=== PATIENT | male | born 1950 | race Caucasian/White ===

== ENCOUNTER 2018-10-05 02:27 | Inpatient (IN) | payer MEDICARE, SELFPAY ==
[2018-10-05] VITALS (18 sets, daily range): BP systolic 121–198; BP diastolic 56–109; PULSE 64–103; RESP 14–22; TEMP 36.7–37.6; O2SAT 92–99; BMI 31.0; BMI 30.2
--- NOTE | 2018-10-05 02:43 | CT_ITS ---
HISTORY: MID ABDOMEN PAIN SINCE YESTERDAY,NAUSEA,ELEVATED WBC,RECENT TRAVEL OUT OF THE HX:HLD,HTN,DIABETES EXAMINATION: CT Abdomen And Pelvis W/ Contrast TECHNIQUE: Helically acquired images were obtained of the abdomen and pelvis following IV contrast. A radiation dose optimization technique was used for this scan. IV Contrast dosage and agent: 100ML Isovue 300 Oral contrast: yes COMPARISON: None FINDINGS: Lower thorax: Right basilar mild dependent atelectasis, not unusual. No pleural effusion. Borderline cardiomegaly. No pericardial effusion. The gallbladder is well distended and shows multiple small dependent stones. No biliary dilatation. Mild fatty infiltration of the liver. The liver is upper normal in size. Normal spleen and pancreas. Both kidneys are normal in position. Bilateral renal excretion of contrast without evidence of hydronephrosis or suspicious renal lesion. Benign-appearing cortical cysts of both kidneys. Adrenal glands are not enlarged. Abdominal aorta is atherosclerotic and normal in caliber. No ascites or retroperitoneal lymph enlargement. GI tract: No obstruction. Large fecal residue within the right colon. Small appendiceal stump. No pericolonic inflammatory changes. Pelvis: No free fluid or lymph node enlargement. Normal urinary bladder. The prostate gland is not enlarged. Bones: No acute osseous abnormality. Ventral abdominal wall: Tiny fat-containing umbilical hernia. CT/Abdomen/Pelvis WITH Contrast IMPRESSION: 1. Cholelithiasis. No biliary dilatation. Fatty liver. 2. No bowel obstruction or acute abdominal disease identified. Individualized dose optimization techniques were used for this CT. at 0543 Reported and signed by: Sourav Salvador MD Electronically Signed: Sourav Salvador, at 5:42 EDT Tel , Service support ,
--- NOTE | 2018-10-05 02:43 | EKG12_ITS ---
Test Reason : Blood Pressure : / mmHG Vent. Rate : 063 BPM Atrial Rate : 058 BPM P-R Int : 148 ms QRS Dur : 094 ms QT Int : 436 ms P-R-T Axes : 039 -24 011 degrees QTc Int : 446 ms Sinus bradycardia with Premature atrial complexes Otherwise normal ECG Confirmed by SRAVANTHI LOGAN, AYDEE ([id number]), assignment editor RADHA PALACIOS ([id number]) on 10/10/2018 12:57:20 PM Referred By: Confirmed By:AYDEE FISHMAN MD
[2018-10-05] MEDS: Ondansetron 4 MG/2 ML Vial IV ×2 (02:50→09:21)
[2018-10-05] MEDS: Morphine 4 MG/ML Syringe IV ×3 (02:50→13:34)
[2018-10-05 02:54] LABS: Absolute Lymphocyte Count 0.82 X10^3/ul (0.83-4.51); Absolute Neutrophil Count 11.8 X10^3/uL (2.0-7.7); Basophil# 0.02 X10^3/uL; Basophil% 0.1 % (0-1); Eosinophil# 0.07 X10^3/uL; Eosinophils% 0.5 % (0-5); Hematocrit 45.7 % (40-54); Hemoglobin 15.9 g/dl (13.0-16.5); Lymphocyte # 0.82 X10^3/ul (4.0); Lymphocyte % 6.1 % (19-41); Mean Corp Hgb Conc 34.8 g/gl (32-36); Mean Corpuscular Hgb 30.3 pg (27.0-32.0); Mean Platelet Vol. 10.1 fl (6.2-12.0); Monocyte# 0.79 X10^3/uL; Monocyte% 5.8 % (0-10); Neutrophil % 87.2 % (47-70); POSITIVE COUNT NO; POSITIVE DIFFERENTIAL NO; POSITIVE MORPHOLOGY NO; Platelet Count 192 K/mm3 (150-450); RBC Distribution Width CV 13.1 % (11.6-14.6); RBC Distribution Width SD 41.3 fl (35.1-43.9); Red Blood Count 5.25 M/mm3 (4.6-6.2); White Blood Count 13.5 K/mm3 (4.4-11.0)
--- NOTE | 2018-10-05 03:16 | ED.DCSUM_ITS ---
- ER Visit Summary Date of Service: 10/05/18 Chief Complaint: Abdominal pain History of Present Illness: The patient is a 68 M presenting with abdominal pain. Patient states this started around 7 PM last night. He has mid and right upper quadrant abdominal pain. He has associated nausea and vomiting. He states he had loose stool but denies diarrhea or constipation. Denies urinary complaints. Denies fever. States he ate [place] food around 2 PM. He has never had similar symptoms in the past. Denies fever. Denies chest pain or shortness of breath. Denies other complaints. Physical Examination: Vitals are stable. Patient is afebrile. Alert no acute distress. HEENT exam is unremarkable. Neck is supple. Lungs are clear and equal bilaterally. Heart is regular rate and rhythm. Abdomen is soft right upper quadrant and epigastric tenderness. No rebound or guarding Extremities are unremarkable. Skin is warm and dry. Remainder of exam is unremarkable. Emergency Department Course and Treatment: Patient was given morphine, Zofran IV. EKG is sinus rate of 63 with no acute ischemic changes. CBC shows a white count of 13.5. Chemistries normal except for glucose 211, BUN 19, creatinine 1.33. Liver lipase are normal. CT abdomen pelvis with IV and oral contrast shows cholelithiasis. No biliary dilatation. Fatty liver. No bowel obstruction or acute abdominal disease identified. Patient continues to have pain and was [place] Dilaudid IV. Right upper quadrant ultrasound was ordered and will be checked by oncoming physician. Disposition: Pending Impression: Abdominal pain This note was generated with [employer] dictation software. It may contain incorrect words, spelling, and punctuation that were not noted in review of the chart prior to signing ED Disposition - Plan for ED Patient: Referrals: Torrey Chi MD [Primary Care Provider] -
[2018-10-05 03:19] LABS: AST(SGOT) 20 U/L (15-37); Alanine Aminotransfer ALT/SGPT 28 U/L (16-61); Alkaline Phosphatase 88 U/L (45-117); Anion Gap 9 (5-15); BUN 19 mg/dL (7-18); BUN/Creat Ratio 14.3 RATIO (10-20); Bilirubin, Direct 0.23 mg/dL (0.00-0.30); Calcium,Total 9.4 mg/dL (8.5-10.1); Chloride 103 mmol/L (98-107); Creatinine, Serum 1.33 mg/dL (0.70-1.30); EST Glomerular Filtration Rate 56 mL/min (>60); Est Glom Filt Rate - Afr Amer 68 mL/min (>60); Estimated Creatinine Clearance 53.36 ml/min; Globulin 4.1 g/dL (2.2-4.2); Glucose 211 mg/dL (74-106); Lipase 105 U/L (73-393); Potassium 4.1 mmol/L (3.5-5.1); Protein, Total 8.1 g/dL (6.4-8.2); Sodium Level 140 mmol/L (136-145)
[2018-10-05] MEDS: HYDROmorphone 1 MG/ML Syringe IV (06:06)
--- NOTE | 2018-10-05 06:38 | US_ITS ---
STUDY: ABDOMINAL ULTRASOUND - RIGHT UPPER QUADRANT REASON FOR VISIT: Male, 68 years old. 1 day history of epigastric pain. TECHNIQUE: Ultrasound evaluation of the right upper quadrant was performed with real-time and static carey-scale imaging. TECHNICAL QUALITY: Adequate. COMPARISON: Comparison is made with prior CT scan done and pelvis done earlier in today. FINDINGS: Liver: The liver measures 17.5 cm. There is increased echogenicity consistent with fatty infiltration. The bile ducts are within normal limits. There is hepatic color flow. The direction of portal flow is hepatopetal. There is no demonstrated mass lesion. Gallbladder: Normal distended gallbladder. The gallbladder wall is slightly thickened and measures 4.0 mm. There is a positive sonographic Meza's sign. There is small amount of pericholecystic fluid. There are multiple small echogenic structures within the gallbladder, consistent with multiple gallstones. Sludge is also seen in the gallbladder lumen. Common Bile Duct (C.B.D.): The common bile duct measures 4.9 mm. Pancreas: Normal size of the head, body and tail of the pancreas. There is normal echogenicity of the pancreas. There is no demonstrated pancreatic mass or cyst. Right Kidney: Normal size of the right kidney. The right kidney measures 9.9 cm x 4.5 cm x 5.5 cm. Normal renal cortex. The right cortex measures 1.3 cm. 2 cysts are seen. The larger measures 1.9 cm x 1.5 cm x 1.6 cm. There is no right hydronephrosis. US/Gallbladder IMPRESSION: Fatty infiltration of the liver. Gallstones and sludge in the gallbladder lumen. Thickened gallbladder wall with the small amount of pericholecystic fluid. Right renal cysts. Electronically Signed: Tommy Main, at 8:28 EDT , Service support ,
--- NOTE | 2018-10-05 08:57 | PCM.HP.BLA ---
History and Physical Date of Admission: 10/05/18 Chief Complaint: abdominal pain History of Present Illness: 68 y/o WM with hypertension and diabetes, presents with acute onset of right upper quadrant abdominal pain since last evening. Denies antecedent symptoms. Denies fevers. Has had nausea/emesis. Has anorexia. Has occasional constipation, denies diarrhea. Denies jaundice. Presented to ED [facility] - WBC 13.5 k with left shift of differential. Elevated creatinine at 1.33 PAST?MEDICAL?HISTORY ? B12 DEFIC ANEMIA NEC ? ? Diabetes (HCC) ? ? Eczema ? ? ears ? Hypertension ? ? Mixed hyperlipidemia ? ? OBESITY NOS ? ? Work-related stress ? ? ? PAST?SURGICAL?HISTORY ? COLONOSCOP W/ OR W/O [facility] SPEC ? 04/29/09 ? Repeat due 2019 ? KNEE ARTHROSCOPY/SURGERY ? ? ? right meniscus repair ? PAST SURGICAL HISTORY OF ? 07/28/11 ? throid FNA-benign ? TONSILLECTOMY HX ? ? ? Medications: losartan-hydrochlorothiazide (HYZAAR) 50-12.5 mg per tablet metFORMIN ER (GLUCOPHAGE XR) 500 mg 24 hr tablet atorvastatin (LIPITOR) 10 mg tablet triamcinolone acetonide (KENALOG) 0.1 % cream Cyanocobalamin (VITAMIN B-12) 1,000 mcg subl Allergies: Has no known drug allergies Social history: TOB use denies Review of Systems: General - denies fevers, Cardiovascular denies chest pain, denies history of heart attack, denies heart problems Pulmonary denies shortness of breath, denies coughing up blooda Gastrointestinal as per HPI, Neurological denies numbness/weakness of extremities, denies seizures, denies history of stroke Genitourinary denies burning with urination, denies blood in urine, Hematological denies spontaneous bleeding, denies prolonged bleeding Skin denies open wounds, denies rashes Musculoskeletal had ankle fracture in past Endocrine has diabetes Psychological denies suicidal ideation, denies hallucinations Physical examination: Vital signs Temp 98.2 BP 180/102 General WD/WN WM in no apparent distress, alert and oriented, not septic appearing HEENT Normocephalic. EOM intact with sclera clear and no icterus noted. Neck is supple with no jugular venous distention noted. Trachea is midline. Lungs clear to auscultation. normal breath sounds . No rales/rhonchi/wheezing noted. No labored breathing noted, such as retractions. No cough heard. Heart normal S1 and S2 auscultated. No rubs/clicks/murmurs noted. Normal size and location by auscultation. Abdomen soft but tender in right upper quadrant, decreased bowel sounds, difficult to determine if any masses due to body habitus. Extremities no calf tenderness noted. No pitting edema noted. Genitourinary/Rectal deferred Skin no rashes noted. Normal skin integrity. Neurological non focal Psychological normal affect, patient is calm and appropriate Impression: cholelithiasis, acute cholecystitis hypertension diabetes BMI >30 DIscussion/Plan: I have discussed the above with the patient and his who is present with him. I have offered the patient the procedure of laparoscopic cholecystectomy, possible cholangiograms. I have explained the procedure to the patient. I have counseled the patient as to the risks of the procedure, including but not limited to: infection, bleeding, injury to any blood vessels/nerves, scar tissue, injury to any intraabdominal organs, injury to kidney/ureters, injury to bowel/bladder, injury to the common bile duct/biliary tree, bile leakage, intraabdominal abscess/bleeding, hernias at incisional sites, wound infections, possible open procedure, complications of anesthesia, postoperative pneumonia/cardiac problems/blood clots etc. the patient understands. He agrees to proceed. I have answered all questions to the patient?s satisfaction and the patient has no further questions.
--- NOTE | 2018-10-05 09:06 | HP.PCM_ITS ---
History and Physical Date of Admission: 10/05/18 Chief Complaint: abdominal pain History of Present Illness: 68 y/o WM with hypertension and diabetes, presents with acute onset of right upper quadrant abdominal pain since last evening. Denies antecedent symptoms. Denies fevers. Has had nausea/emesis. Has anorexia. Has occasional constipation, denies diarrhea. Denies jaundice. Presented to ED [facility] - WBC 13.5 k with left shift of differential. Elevated creatinine at 1.33 PAST?MEDICAL?HISTORY ? B12 DEFIC ANEMIA NEC ? ? Diabetes (HCC) ? ? Eczema ? ? ears ? Hypertension ? ? Mixed hyperlipidemia ? ? OBESITY NOS ? ? Work-related stress ? ? ? PAST?SURGICAL?HISTORY ? COLONOSCOP W/ OR W/O [facility] SPEC ? 04/29/09 ? Repeat due 2019 ? KNEE ARTHROSCOPY/SURGERY ? ? ? right meniscus repair ? PAST SURGICAL HISTORY OF ? 07/28/11 ? throid FNA-benign ? TONSILLECTOMY HX ? ? ? Medications: losartan-hydrochlorothiazide (HYZAAR) 50-12.5 mg per tablet metFORMIN ER (GLUCOPHAGE XR) 500 mg 24 hr tablet atorvastatin (LIPITOR) 10 mg tablet triamcinolone acetonide (KENALOG) 0.1 % cream Cyanocobalamin (VITAMIN B-12) 1,000 mcg subl Allergies: Has no known drug allergies Social history: TOB use denies Review of Systems: General - denies fevers, Cardiovascular denies chest pain, denies history of heart attack, denies heart problems Pulmonary denies shortness of breath, denies coughing up blooda Gastrointestinal as per HPI, Neurological denies numbness/weakness of extremities, denies seizures, denies history of stroke Genitourinary denies burning with urination, denies blood in urine, Hematological denies spontaneous bleeding, denies prolonged bleeding Skin denies open wounds, denies rashes Musculoskeletal had ankle fracture in past Endocrine has diabetes Psychological denies suicidal ideation, denies hallucinations Physical examination: Vital signs Temp 98.2 BP 180/102 General WD/WN WM in no apparent distress, alert and oriented, not septic appearing HEENT Normocephalic. EOM intact with sclera clear and no icterus noted. Neck is supple with no jugular venous distention noted. Trachea is midline. Lungs clear to auscultation. normal breath sounds . No rales/rhonchi/wheezing noted. No labored breathing noted, such as retractions. No cough heard. Heart normal S1 and S2 auscultated. No rubs/clicks/murmurs noted. Normal size and location by auscultation. Abdomen soft but tender in right upper quadrant, decreased bowel sounds, difficult to determine if any masses due to body habitus. Extremities no calf tenderness noted. No pitting edema noted. Genitourinary/Rectal deferred Skin no rashes noted. Normal skin integrity. Neurological non focal Psychological normal affect, patient is calm and appropriate Impression: cholelithiasis, acute cholecystitis hypertension diabetes BMI >30 DIscussion/Plan: I have discussed the above with the patient and his who is present with him. I have offered the patient the procedure of laparoscopic cholecystectomy, possible cholangiograms. I have explained the procedure to the patient. I have counseled the patient as to the risks of the procedure, including but not limited to: infection, bleeding, injury to any blood vessels/nerves, scar tissue, injury to any intraabdominal organs, injury to kidney/ureters, injury to bowel/bladder, injury to the common bile duct/biliary tree, bile leakage, intraabdominal abscess/bleeding, hernias at incisional sites, wound infections, possible open procedure, complications of anesthesia, postoperative pneumonia/cardiac problems/blood clots etc. the patient understands. He agrees to proceed. I have answered all questions to the patient?s satisfaction and the patient has no further questions.
[2018-10-05] MEDS: HYDROmorphone 0.5 MG/0.5 ML SYRINGE IV (09:19)
[2018-10-05] MEDS: Lactated Ringers 1,000 ML 125 ML IV ×2 (11:13→19:08)
[2018-10-05] MEDS: Losartan Potassium 50 MG Tablet PO (11:13)
[2018-10-05] MEDS: hydroCHLOROthiazide 12.5mg 12.5 MG PO (11:13)
[2018-10-05 11:25] LABS: Bedside Glucose 234 mg/dL (70-110)
[2018-10-05] MEDS: Insulin Lispro 100 UNIT/ML INSULN.PEN SQ ×3 (11:27→22:13)
[2018-10-05 11:50] LABS: Hemoglobin A1c 8.1 % (4.2-6.3)
[2018-10-05] MEDS: 0.9% NaCl Peripheral Flush Adult/Peds IV (13:02)
[2018-10-05] MEDS: hydrALAZINE 20 MG/ML Vial 10 MG IV (13:02)
--- NOTE | 2018-10-05 15:30 | GALL_PTH ---
PATIENT: RANCHO MAY LOC: MS2 U#:[id number] AGE/SX: 68/M ROOM: MS211 RE10/05/[address]: Dr. Brittney Calderon MD : [id number] BED: 1 DIS: 10/06/2018 SPEC #: [id number] RECD: 10/06/18 09:50 STATUS: MICHAEL REQ #: [id number] SRINIVASAN: 10/05/18 15:[address]: Brittney Calderon DEPT: SURGICAL PATHOLOGY RECD BY: Garo Shearer ENTERED: 10/06/18 13:12 SP TYPE: JULI ORO DR: Dr. Torrey Chi MD Tissues: Gallbladder, NOS Procedures: Surgery Specimen Level III HEADER OPERATION: Laparoscopic cholecystectomy PRE-OP DIAGNOSIS: Cholelithiasis, acute cholecystitis TISSUE SUBMITTED: Gallbladder MICROSCOPIC DIAGNOSIS Gallbladder, cholecystectomy: Acute and chronic cholecystitis with denudation of mucosa. Cholelithiasis. AM:ania 10/07/18 MICROSCOPIC DESCRIPTION Slides are reviewed. GROSS DESCRIPTION Received is one container labeled with the patient's name and designated gallbladder. The specimen consists of a ruptured gallbladder measuring 9.6 x 3.5 x 2.8 cm. The serosal surface is covered by yellow fatty tissue. A roughened area is present, grossly compatible with the hepatic reflection. The gallbladder is opened to reveal multiple jagged black pigmented calculi ranging in diameter from 0.1 to 0.9 cm. The mucosal surface of the gallbladder is green and slightly velvety. Sections through the cystic duct demonstrate black granular material. The gallbladder wall is thickened but uniform (0.6 cm). V Belt Inspector sections of the gallbladder and the cystic duct are submitted in one cassette. / CE:ania 10/06/18 TC:2 CPT: 25386
[2018-10-05] MEDS: Bupiv/Epi 0.25% 30 ML Vial (16:25)
--- NOTE | 2018-10-05 16:30 | OP.PCM_ITS ---
Report of Operation Date of Procedure: 10/05/18 Pre-Operative Diagnosis: cholelithiasis, acute cholecystitis Post-Operative Diagnosis: cholelithiasis with obstruction, acute on chronic cholecystitis Surgery/Procedure Performed:: laparoscopic cholecystectomy Description of Surgical Findings:: acute on chronic cholecystitis, cholelithiasis with obstruction - distended gallbladder - needle aspiration revealed contents under pressure orthopedic shoe maker: Mj Estes Type of Anesthesia:: General Anesthesiologist: Prashant Cox Specimen's removed: gallbladder and contents Estimated Blood Loss (mL): 20 ml Fluids Replaced: 900 ml RL Description of Procedure: After informed consent was given, the patient was brought to the Operating Room. Appropriate time out protocol was followed. He was then placed in the supine position. The patient was then placed under general endotracheal anesthesia. The abdomen was then prepped with a sterile surgical skin preparation and sterile surgical drapes were placed. A skin fold was grasped with penetrating clamps and the skin and subcutaneous tissues were infiltrated with 0.25% marcaine with epinephrine. A skin incision was then made with a 15 blade scalpel. The anterior abdominal wall was elevated and a Veress needle was ca refully inserted into the intraabdominal cavity. It was checked to be in the proper position with a normal saline drop test. A CO2 pneumoperitoneum was then created. Once this was achieved, then the Veress needle was removed and an 11mm trocar was placed in its stead. A 10mm laparoscope was then inserted into the trocar and careful attention was directed to the intraabdominal contents. There was no evidence of injury to any intraabdominal organs from insertion of the Veress needle or the trocar. Under direct visualization, a 5mm subxiphoid trocar and two lateral 5mm right subcostal trocars were placed. The skin and subcutaneous tissues at these sites were infiltrated with 0.25% marcaine with epinephrine prior to placement of these trocars. Attention was then directed to the right upper quadrant of the abdomen. The gallbladder was distended, needle aspirator was used to aspirate out liquid contents, it was noted to be under pressure. Thus the distended gallbladder, once aspiration was done, could be grasped with graspers. Graspers were placed in the lateral trocars to grasp the distal aspect of the gallbladder and direct it cephalad and to grasp the gallbladder at Rose?s pouch and direct it laterally. The gallbladder was friable. There was a large amount inflammation c/w acute on chronic cholecystitis. Dissection then began on the proximal gallbladder continuing down to the area of the triangle of Calot to bluntly dissect out the cystic duct. The neck of the gallbladder was identified and blunt dissection continued to dissect out a segment of the cystic duct. A clip was then placed on the neck of the gallbladder. Two clips were placed proximally and the cystic duct was then transected. The cystic artery was visualized and bluntly isolated and then two clips were placed proximally and one clip distally and then it was transected between the proximal and distal clips. The gallbladder was then from the liver bed using electrocautery and thus able to be brought out of the umbilical port. It was then forwarded to pathology for analysis. The liver bed was carefully examined. There was inflammatory oozing for which surgicel was placed to line the liver bed and also Talia was applied. There was no evidence of bile leakage or bleeding. The cystic duct stump and cystic artery stump had their clips intact and there was no evidence of bile leakage or bleeding. The remainder of the abdomen was grossly normal. The CO2 was released and all trocars removed intact. The periumbilical fascia was approximated with a [id number] 0 vicryl suture. All skin incision were closed with 4-0 monocryl in a subdermal fashion. Cavilol and Steristrips were used to reinforce the skin closure. Sterile dressings were applied to all wounds. The patient was extubated and brought to the Recovery Room in stable condition. - Complications none noted - Admit VTE Documentation VTE Present on Admission: Yes VTE Mechan Device Prophylaxis: SCD's
[2018-10-05 17:00] LABS: Bedside Glucose 210 mg/dL (70-110)
[2018-10-05 18:25] LABS: Bedside Glucose 227 mg/dL (70-110)
[2018-10-05 22:30] LABS: Bedside Glucose 177 mg/dL (70-110)
[2018-10-06] MEDS: HYDROcodone Bitartrate/Apap 5/325 Tablet PO ×2 (00:39→08:02)
[2018-10-06 04:09] VITALS: BP 153/86; PULSE 80; RESP 16; TEMP 37.4; O2SAT 93
[2018-10-06] MEDS: Lactated Ringers 1,000 ML 125 ML IV (04:18)
[2018-10-06] MEDS: Insulin Lispro 100 UNIT/ML INSULN.PEN SQ ×2 (06:51→10:59)
[2018-10-06 07:06] LABS: Bedside Glucose 163 mg/dL (70-110)
--- NOTE | 2018-10-06 07:14 | PCM.PN.SRG ---
Subjective: Patient feels much improved, only has soreness when moving around has been able to urinate has not passed flatus - Physical Exam General: Alert, Oriented x3 Oral: Moist Mucosa Neck: Supple Lungs: Normal air movement Abdomen: Bowel Sounds Present, Soft, - - dressings intact Vital Signs Temp Pulse Resp BP Pulse Ox 99.3 F H 80 16 153/86 H 93 10/06/18 04:09 10/06/18 04:09 10/06/18 04:09 10/06/18 04:09 10/06/18 04:09 Oxygen Flow Rate (L/min) 1 Oxygen Delivery Method Room Air Weight: 95.5 kg Body Mass Index (BMI) 30.2 Finger Stick Blood Glucose 210 Intake and Output for Last 24 Hours 10/04/18 10/05/18 10/06/18 23:59 23:59 23:59 Intake Total 2001 / 2083 Output Total 50 / 50 750 / 750 Balance 1951 / 1951 1334 / 1334 Laboratory Tests Past 24 Hrs 10/05/18 02:40 Hemoglobin A1c 8.1 H POC Glucose 10/06/18 10/05/18 10/05/18 06:36 22:12 18:17 POC Glucose 163 H 177 H 227 H 10/05/18 10/05/18 16:55 11:12 POC Glucose 210 H 234 H Medical Necessity - Tobacco Use Smoking Status: Never smoker Assessment/Plan Impression: s/p laparoscopic cholecystectomy for severe cholecystitis Plan: d/c to home when passes flatus encourage ambulation, water intake, and IS Follow up with me Wednesday
--- NOTE | 2018-10-06 07:16 | PCM.DC.BLA ---
Discharge Summary Date of Admission: 10/05/18 Date of Discharge: 10/06/18 Summary: 68 y/o WM presents with one day history of right upper quadrant abdominal pain. Admitted for acute cholecystitis and cholelithiasis. Underwent surgery on 10/05/18 findings of severe acute on chronic cholecystitis Postop recovery unremarkable, tolerating diet and ambulating well after surgery. Discharged to home with follow up as outpatient - Physical Exam Vital Signs Temp Pulse Resp BP Pulse Ox 99.3 F H 80 16 153/86 H 93 10/06/18 04:09 10/06/18 04:09 10/06/18 04:09 10/06/18 04:09 10/06/18 04:09 Oxygen Flow Rate (L/min) 1 Oxygen Delivery Method Room Air Weight: 95.5 kg Body Mass Index (BMI) 30.2 Finger Stick Blood Glucose 210 Intake and Output for Last 24 Hours 10/04/18 10/05/18 10/06/18 23:59 23:59 23:59 Intake Total 2001 / 2083 Output Total 50 / 50 750 / 750 Balance 1951 / 1951 1334 / 1334 Laboratory Tests Past 24 Hrs 10/05/18 02:40 Hemoglobin A1c 8.1 H POC Glucose 10/06/18 10/05/18 10/05/18 06:36 22:12 18:17 POC Glucose 163 H 177 H 227 H 10/05/18 10/05/18 16:55 11:12 POC Glucose 210 H 234 H
--- NOTE | 2018-10-06 07:18 | PCM.DC.GB ---
Discharge Diet: No Restrictions - drink plenty of fluids, avoid carbonated beverages for a couple of days Discharge Activity: Return to Normal Activity, May not drive while taking narcotic pain medications. Lifting Restrictions: no lifting/pushing/pulling greater than 20 pounds Call your doctor if your incision/area has: Continuous Slow Oozing, Foul Smelling Discharge Call your doctor if you observe: Fever of 101 or Higher Additional Dressing/Incision Instructions:: Leave dressings intact. May get wet in shower. Do not soak - no tub baths/swimming Additional Instructions: recommended pain medication regimen - can take 650 mg acetaminophen, then in three hours take 600 mg ibuprofen, then in three hours take 650 mg acetaminophen, then in three hours take 600 mg ibuprofen and so on, for about 1-2 days, take narcotic pain medications for breakthrough pain Allergies/Adverse Reactions: Allergies No Known Allergies Allergy (Verified 10/05/18 02:29) Medications to take at Discharge Atorvastatin Calcium [Lipitor] 10 mg PO DAILY 10/05/18 Hydrocodone Bitart/Apap 5-325 [[place] 5MG-325MG] 1 tab PO Q8H PRN PRN 5 Days #15 tab 10/05/18 Losartan/Hydrochlorothiazide [Losartan-Hctz 50-12.5 mg Tab] 1 each PO DAILY 10/05/18 metFORMIN (XR) [Glucophage Xr] 1,000 mg PO DAILY 10/05/18 The following prescriptions were given: Hydrocodone Bitart/Apap 5-325 [[place] 5MG-325MG] 1 tab PO Q8H PRN PRN 5 Days #15 tab PRN Reason: Pain Primary Care Physician: Torrey Chi MD [Primary Care Provider] - Test Results: Test results from this visit will be discussed in further detail at your follow-up appointment, if applicable. Please Follow Up With: Brittney Calderon MD - When: to be seen October 10 at 9:20
--- NOTE | 2018-10-06 07:22 | DCINST_ITS ---
Discharge Diet: No Restrictions - drink plenty of fluids, avoid carbonated beverages for a couple of days Discharge Activity: Return to Normal Activity, May not drive while taking narcotic pain medications. Lifting Restrictions: no lifting/pushing/pulling greater than 20 pounds Call your doctor if your incision/area has: Continuous Slow Oozing, Foul Smelling Discharge Call your doctor if you observe: Fever of 101 or Higher Additional Dressing/Incision Instructions:: Leave dressings intact. May get wet in shower. Do not soak - no tub baths/swimming Additional Instructions: recommended pain medication regimen - can take 650 mg acetaminophen, then in three hours take 600 mg ibuprofen, then in three hours take 650 mg acetaminophen, then in three hours take 600 mg ibuprofen and so on, for about 1-2 days, take narcotic pain medications for breakthrough pain Allergies/Adverse Reactions: Allergies No Known Allergies Allergy (Verified 10/05/18 02:29) Medications to take at Discharge Atorvastatin Calcium [Lipitor] 10 mg PO DAILY 10/05/18 Hydrocodone Bitart/Apap 5-325 [[place] 5MG-325MG] 1 tab PO Q8H PRN PRN 5 Days #15 tab 10/05/18 Losartan/Hydrochlorothiazide [Losartan-Hctz 50-12.5 mg Tab] 1 each PO DAILY 10/05/18 metFORMIN (XR) [Glucophage Xr] 1,000 mg PO DAILY 10/05/18 The following prescriptions were given: Hydrocodone Bitart/Apap 5-325 [[place] 5MG-325MG] 1 tab PO Q8H PRN PRN 5 Days #15 tab PRN Reason: Pain Primary Care Physician: Torrey Chi MD [Primary Care Provider] - Test Results: Test results from this visit will be discussed in further detail at your follow- up appointment, if applicable. Please Follow Up With: Brittney Calderon MD - When: to be seen October 10 at 9:20
[2018-10-06 08:57] VITALS: BP 110/62; PULSE 86; RESP 18; TEMP 38.1; O2SAT 92
[2018-10-06] MEDS: Losartan Potassium 50 MG Tablet PO (09:39)
[2018-10-06] MEDS: hydroCHLOROthiazide 12.5mg 12.5 MG PO (09:39)
--- NOTE | 2018-10-06 10:47 | CASEMGMT ---
RN CM Assessment Presentation: Lap cholecystectomy for severe cholecystitis. Intro role of CM and purpose of RN CM assessment to patient and his . Pt is awake, alert, sitting in chair and able to participate. Demographics, PCP and Pharmacy verified. Pt states he is very independent and plans to go home today. PCP: Dr. Chi Specialists: Dr. Calderon Insurance: [employer] Medicare Complete (through [facility]) Preferred [facility]: [facility], entered in chart. Prescription Benefit: yes LNOK: : Aliza Coley Living Arrangements: Lives independently with his . Transportation: drives or can drive DME: none HHC: none Patient DC goals: Home DC PLAN: Home, no dc needs identified. Sugar CURTIS RN ACM
[2018-10-06 11:11] LABS: Bedside Glucose 210 mg/dL (70-110)
--- NOTE | 2018-10-06 11:26 | NURSING ---
This RN called Dr. Calderon's office and spoke with Karie regarding pt d/c- as pt is wanting to be d/c'ed. Notified by Karie that Ksenia collins was called in by her to [facility] in [place] and that Dr. Calderon states ok to d/c pt at this time.
[2018-10-06 11:31] VITALS: TEMP 37.7
== END 2018-10-06 11:35 | disposition home or self-care (01) | DRG 419 ==
LOC: ED 09:18 → MS2 09:58
PROVIDERS: Anesthesiology; Emergency Medicine; Admitting Provider Surgery; Emergency Provider Emergency Medicine; Family Provider Family Medicine; PCP Family Medicine; Visit Provider Surgery
PROC: 0FT44ZZ Resection of Gallbladder, Percutaneous Endoscopic Approach (ICD-10-PCS; CPT 47610; principal; 2018-10-05 15:10)
DX: K80.12 Calculus of gallbladder with acute and chronic cholecystitis without obstruction (principal); K82.8 Other specified diseases of gallbladder; I10 Essential (primary) hypertension; E11.9 Type 2 diabetes mellitus without complications
CPT/HCPCS: 74177; 76705; 80048; 80076; 82962; 83036; 83690; 85025; 88304; 93005; 99284; J7120; Q9967; A4216; J2405